=== PATIENT | male | born 1995 | race Caucasian/White ===

== ENCOUNTER 2019-12-22 21:00 | Emergency (ER) | payer SELFPAY ==
[~2019-12-22] VITALS: Ht 172.7 cm; Wt 77.0 kg
[2019-12-22 21:19] VITALS: BP 149/99
[2019-12-22] MEDS ORDERED: HYDR-3164 PO (21:32)
[2019-12-22] MEDS ORDERED: PENI500T PO (21:32)
--- NOTE | 2019-12-22 21:33 | PHYS DOC ---
Past Medical History Past Medical History: No Pertinent History Past Surgical History: No Surgical History Smoking Status: Never Smoker Alcohol Use: None General Adult EDM: Chief Complaint: DENTAL PROBLEM HPI: HPI: Patient is a 24 year old male who presents with left upper facial swelling and dental pain x 1 day. Patient lives in [place] and he just came up today visiting. He states he does have a dentist back at home. He denies fevers, nausea, vomiting, diarrhea, abdominal pain, chest pain, shortness of breath, cough. Patient has missing teeth in the right upper back teeth and also many dental caries. The gumline is swollen and tender. Patient rates his pain a 10 out of 10 and states it is aching and throbbing. There is no radiation. Review of Systems: Review of Systems: Constitutional: Denies fever or chills. [] Eyes: Denies change in visual acuity. [] HENT: Denies nasal congestion or sore throat. Left upper dental pain with facial swelling[] Respiratory: Denies cough or shortness of breath. [] Cardiovascular: Denies chest pain or edema. [] GI: Denies abdominal pain, nausea, vomiting, bloody stools or diarrhea. [] : Denies dysuria. [] Musculoskeletal: Denies back pain or joint pain. [] Integument: Denies rash. Left upper facial swelling[] Neurologic: Denies headache, focal weakness or sensory changes. [] Endocrine: Denies polyuria or polydipsia. [] Lymphatic: Denies swollen glands. [] Psychiatric: Denies depression or anxiety. [] Heart Score: Risk Factors: Risk Factors: DM, Current or recent (<one month) smoker, HTN, HLP, family history of CAD, obesity. Risk Scores: Score 0 - 3: 2.5% MACE over next 6 weeks - Discharge Home Score 4 - 6: 20.3% MACE over next 6 weeks - Admit for Clinical Observation Score 7 - 10: 72.7% MACE over next 6 weeks - Early Invasive Strategies Physical Exam: PE: Constitutional: Well developed, well nourished, no acute distress, non-toxic appearance. [] HENT: Normocephalic, atraumatic, bilateral external ears normal, oropharynx moist, no oral exudates, nose normal. Dental caries, left upper gumline swelling and tenderness.[] Eyes: PERRLA, EOMI, conjunctiva normal, no discharge. [] Neck: Normal range of motion, no tenderness, supple, no stridor. [] Cardiovascular:Heart rate regular rhythm, no murmur [] Lungs & Thorax: Bilateral breath sounds clear to auscultation [] Abdomen: Bowel sounds normal, soft, no tenderness, no masses, no pulsatile masses. [] Skin: Warm, dry, no erythema, no rash. [] Back: No tenderness, no CVA tenderness. [] Extremities: No tenderness, no cyanosis, no clubbing, ROM intact, no edema. [] Neurologic: Alert and oriented X 3, normal motor function, normal sensory function, no focal deficits noted. [] Psychologic: Affect normal, judgement normal, mood normal. [] Current Patient Data: Vital Signs: Vital Signs Date Time Temp Pulse Resp B/P (MAP) Pulse Ox O2 Delivery O2 Flow Rate FiO2 12/22/19 21:19 98.6 98 16 149/99 (116) 100 98.6 EKG: EKG: [] Radiology/Procedures: Radiology/Procedures: [] Course & Med Decision Making: Course & Med Decision Making Pertinent Labs and Imaging studies reviewed. (See chart for details) See HPI. Afebrile. Vital signs are within normal limits. Ambulatory with a steady gait. Skin pink warm and dry. Alert and oriented x4. No trismus. Patient will be given antibiotic and pain medication. He states he will follow- up with his dentist soon as possible. [] Dragon Disclaimer: Dragon Disclaimer: This electronic medical record was generated, in whole or in part, using a voice recognition dictation system. Departure Departure Impression: Primary Impression: Abscess, dental Disposition: 01 HOME, SELF-CARE Condition: STABLE Referrals: NON,STAFF (PCP) Patient Instructions: Dental Abscess Additional Instructions: Take medication as prescribed and with food. Remember that pain medications will make you sleepy and do not drink any alcohol and talk with him. Follow-up with a dentist as soon as possible. Scripts Penicillin V Potassium (PENICILLIN V POTASSIUM) 500 Mg Tablet 1 TAB PO QID, #40 TAB Prov: KAROLYN SINGH [employer] 12/22/19 Hydrocodone/Apap 5-325 (NORCO 5-325 TABLET) 1 Each Tablet 1 TAB PO PRN Q6HRS PRN for PAIN, #12 TAB 0 Refills Prov: KAROLYN SINGH APRN 12/22/19 Justicifation of Admission Dx: Justifications for Admission: Justification of Admission Dx: N/A KAROLYN SINGH APRN Dec 22, 2019 21:33
== END 2019-12-22 21:41 | disposition home or self-care (01) ==
LOC: ER 21:00
DX: K04.7 Periapical abscess without sinus (principal); K08.89 Other specified disorders of teeth and supporting structures; R60.0 Localized edema
CPT/HCPCS: 99283